=== PATIENT | male | born 1995 | race Caucasian/White ===

== ENCOUNTER 2022-01-12 13:39 | Emergency (ER) | payer OTHER, SELFPAY ==
--- NOTE | 2022-01-12 13:54 | ED_ITS ---
HPI - Psych General Chief Complaint: Psychiatric Symptoms Stated Complaint: crisis Time Seen by Provider: 01/12/22 13:49 Source: patient Mode of arrival: EMS Limitations: no limitations History of Present Illness MD complaint: suicidal ideation and feels depressed Onset (ago): week(s) History of same: Yes Relieving factors: none Exacerbating factors: drug use Context: significant life stressor Associated psychiatric symptoms: depression and suicidal ideation Associated symptoms: denies other symptoms Treatments prior to arrival: none If self harm: admits thoughts of self harm Related Data Home Medications Medication Instructions Recorded Confirmed dicyclomine 10 mg capsule 1 cap PO QID PRN 01/12/22 escitalopram oxalate 10 mg tablet 1 tab PO DAILY 01/12/22 escitalopram oxalate 20 mg tablet 1 tab PO DAILY 01/12/22 hydroxyzine HCl 25 mg tablet 1 tab PO TID PRN 01/12/22 omeprazole 40 mg capsule,delayed 1 cap PO DAILY 01/12/22 release Allergies Allergy/AdvReac Type Severity Reaction Status Date / Time shellfish derived Allergy Unknown Verified 01/12/22 13:56 lactose AdvReac Intermediate Abdominal Verified 01/12/22 13:50 Pain Review of Systems Review of Systems: Constitutional : No Fever, No Chills ENT/Mouth : No Ear Pain, No Nasal Congestion, No sore throat Eyes: No Eye Pain, No Swelling, No Redness Cardiovascular : No Chest Pain, No SOB Respiratory : No Cough, No Sputum, No Dyspnea Gastrointestinal : No Nausea, No Vomiting, No Diarrhea, No Hematochezia, No Melena Genitourinary : No Dysuria, No Urinary Frequency, No Hematuria Musculoskeletal : No Myalgias Skin : No Skin Lesions, No rash Neuro : No Weakness, No Numbness, No Paresthesias, No Dizziness, No Headache Psych : positive Anxiety, positive Depression, positive SI no HI Heme/Lymph: No Lymphadenopathy Endocrine : No Polyuria, No Polydipsia All other systems reviewed and are negative [facility] Past Medical History Attestation statement: The following information was validated with the patient. Medical History GERD (gastroesophageal reflux disease) Lactose intolerance Opiate use Social History Social History (Updated 01/12/22 @ 13:57 by Chacha Whitfield DO) Alcohol intake: never Patient Tobacco Use Status: Never used Tobacco Use of substances other than those prescribed or required for medical reasons: Yes Substance Use Type: Marijuana Advance Directives: No Advance Directives Information Provided: No Physical Exam Vital Signs: Vital Signs: Last Vital Signs Temp 98.3 F 01/12/22 13:57 Pulse 108 H 01/12/22 13:57 Resp 18 01/12/22 13:57 BP 135/96 H 01/12/22 13:57 Pulse Ox 98 01/12/22 13:57 BMI result Body Mass Index 20.3 Appearance: Alert. Oriented X3. No acute distress. Eyes: Pupils equal, round and reactive to light. ENT: Pharynx normal. Neck: Normal inspection. Neck supple. CVS: Normal heart rate and rhythm. Pulses normal. Respiratory: No respiratory distress. Breath sounds normal. Abdomen: Soft and nontender. Skin: Skin warm and dry. Normal skin color. Normal skin turgor. Extremities: No lower extremity edema. No calf ttp Neuro: Oriented X 3. No motor deficit. No sensory deficit. Cn2-12 intact Course Course Course Narrative: mild dehydration will encourage PO fluids Physician observation started at 316pm. Patient placed in physician observation because the patient needed more time for [facility] to assess the need for psych admission. At the time observation was started the patient's vitals were stable, patient is alert and oriented but slightly anxious, Neuro: nonfocal, CV RRR, Lungs clear MDM - Psych MDM Narrative Medical decision making narrative: 26 yo female with hx of GERD< chronic stomach issues, lactose intolerance, anxiety/depression not in treatment, using oxycodone daily last used 3 days ago interested in therapy for it comes in with c/o depression and SI - at this time labs, [facility]N consult ordered. Lab Data Result diagrams: 01/12/22 14:39 01/12/22 14:39 Labs: Lab Results 01/12/22 01/12/22 01/12/22 Range/Units 14:39 14:39 14:39 WBC 10.4 (4.8-10.8) X10*3/uL RBC 5.67 (4.60-5.80) X10*6/uL Hgb 16.1 (14.0-18.0) g/dl Hct 47.2 (42.0-52.0) % MCV 83.2 (80.0-98.0) fL MCH 28.4 (27.0-33.0) pg MCHC 34.1 (31.0-36.0) g/dl RDW 13.2 (11.0-16.0) % Plt Count 312 (160-400) X10*3/uL MPV 9.6 (9.4-12.4) fL Immature Gran % (Auto) 0.3 (0.0-0.4) % Neut % (Auto) 75.1 H (45-73) % Lymph % (Auto) 15.6 L (20-40) % Franklin % (Auto) 8.1 (2-11) % Eos % (Auto) 0.7 (0-4) % Baso % (Auto) 0.2 (0-2) % Lymph # (Auto) 1.6 (1.2-4.9) X10*3/uL Franklin # (Auto) 0.8 (0.1-1.2) X10*3/uL Eos # (Auto) 0.1 (0.0-0.4) X10*3/uL Baso # (Auto) 0.0 (0.0-0.2) X10*3/uL Abs Immat Gran (auto) 0.03 (0.00-0.03) X10*3/uL Absolute Neuts (auto) 7.8 (2.0-8.3) x10*3/uL Absolute Nucleated RBC 0.000 (0.0-0.012) X10*3/uL Nucleated RBC % (auto) 0.0 (0.0-0.2) /100WBC Sodium 137 (135-145) mmol/L Potassium 4.9 (3.3-5.1) mmol/L Chloride 101 (96-108) mmol/L Carbon Dioxide 24 (22-29) mmol/L Anion Gap 17 (12-20) BUN 17 H (9-16) mg/dL Creatinine 1.15 (0.5-1.4) mg/dL Estim Creat Clear Calc 93.6 Estimated GFR > 60 Random Glucose 82 (60-115) mg/dL Calcium 10.3 H (8.4-10.2) mg/dL Magnesium 2.0 (1.6-2.6) mg/dL Total Bilirubin 2.4 H (0.0-1.0) mg/dL Direct Bilirubin 0.8 H (0.0-0.5) mg/dL AST 41 H (5-37) U/L ALT 22 (0-40) U/L Alkaline Phosphatase 65 (39-117) U/L Total Protein 8.1 H (6.5-8.0) g/dL Albumin 5.0 (3.5-5.0) g/dL COVID-19 (TOÑA) Negative (Negative) COVID-19 Clin Com See Note Discharge Plan Discharge Clinical Impression: Depression, Opiate abuse, continuous, Acute dehydration Patient Disposition: Still a Patient Prescriptions: No Action omeprazole 40 mg capsule,delayed release(DR/EC) 1 cap PO DAILY 0RF hydroxyzine HCl 25 mg tablet 1 tab PO TID PRN (Reason: anxiety) 0RF dicyclomine 10 mg capsule 1 cap PO QID PRN (Reason: pain) 0RF escitalopram oxalate 10 mg tablet 1 tab PO DAILY 0RF escitalopram oxalate 20 mg tablet 1 tab PO DAILY 0RF
[2022-01-12 13:57] VITALS: BP 120/74; BP 135/96; PULSE 108; PULSE 98; RESP 18; TEMP 36.8; O2SAT 98; O2SAT 99; BMI 20.3
[2022-01-12] MEDS: Dicyclomine HCl 10 MG CAPSULE PO (14:30)
[2022-01-12] MEDS: Ondansetron ODT 4 MG TAB.RAPDIS TRANSLINGU (14:30)
[2022-01-12] MEDS: Omeprazole 20 MG CAPSULE.DR PO (14:30)
[2022-01-12 14:46] LABS: MANUAL DIFF FLAG NO
[2022-01-12 14:48] LABS: Basophils Percent Auto 0.2 % (0-2); Eosinophils Absolute Auto 0.1 X10*3/uL (0.0-0.4); Eosinophils Percent Auto 0.7 % (0-4); Hematocrit 47.2 % (42.0-52.0); Hemoglobin 16.1 g/dl (14.0-18.0); Imm Gran Abs Auto 0.03 X10*3/uL (0.00-0.03); Imm Gran Pct Auto 0.3 % (0.0-0.4); Lymphocytes Absolute Auto 1.6 X10*3/uL (1.2-4.9); Lymphocytes Percent Auto 15.6 % (20-40); Mean Corpuscular HGB Conc 34.1 g/dl (31.0-36.0); Mean Corpuscular Hemoglobin 28.4 pg (27.0-33.0); Mean Corpuscular Volume 83.2 fL (80.0-98.0); Mean Platelet Volume 9.6 fL (9.4-12.4); Monocytes Absolute Auto 0.8 X10*3/uL (0.1-1.2); Monocytes Percent Auto 8.1 % (2-11); Neutrophils Absolute Auto 7.8 x10*3/uL (2.0-8.3); Neutrophils Percent Auto 75.1 % (45-73); Platelet Count 312 X10*3/uL (160-400); Red Blood Count 5.67 X10*6/uL (4.60-5.80); Red Cell Distribution Width 13.2 % (11.0-16.0); White Blood Count 10.4 X10*3/uL (4.8-10.8)
[2022-01-12 15:05] LABS: Alanine Aminotransferase 22 U/L (0-40); Alkaline Phosphatase 65 U/L (39-117); Anion Gap 17 (12-20); Aspartate Amino Transferase 41 U/L (5-37); Bilirubin Direct 0.8 mg/dL (0.0-0.5); Bilirubin Total 2.4 mg/dL (0.0-1.0); Blood Urea Nitrogen 17 mg/dL (9-16); Calcium 10.3 mg/dL (8.4-10.2); Carbon Dioxide 24 mmol/L (22-29); Chloride 101 mmol/L (96-108); Creatinine Clr Calc Pharmacy 93.6; Estimated Glomerular Filt Rate > 60; Glucose Random 82 mg/dL (60-115); Potassium 4.9 mmol/L (3.3-5.1); Sodium 137 mmol/L (135-145); Total Protein 8.1 g/dL (6.5-8.0)
[2022-01-12 15:07] LABS: COVID-19 Test Negative (Negative); IDNOW Serial# 55D5AD1C
[2022-01-12] MEDS: hydrOXYzine HCL 25 MG TABLET PO (16:19)
--- NOTE | 2022-01-12 16:20 | PHA.MEDREC ---
Pharmacy Consult ? Medication Reconciliation Pharmacy has completed the medication reconciliation. Patient states that the last time he took any medication was about 3 to 4 days ago. He states he takes 40 mg of escitalopram daily but the pharmacy has been messing up filling 10 mg and 20 mg scripts. The patient states he has been buying percocets off the street as well and the last one he took was a few days ago. The patient also states that sometimes if his stomach is bothering him he will take an extra omeprazole.
[2022-01-12 18:33] LABS: Amphetamine Screen Urine POSITIVE (Not Detect); Barbiturates, Urine Not Detected (Not Detect); Benzodiazepines Screen Urine POSITIVE (Not Detect); Cannabinoid Screen Urine POSITIVE (Not Detect); Cocaine Screen Urine Not Detected (Not Detect); Fentanyl, urine POSITIVE (Not Detect); Opiate Screen Urine Not Detected (Not Detect); Phencyclidine Screen Urine Not Detected (Not Detect)
--- NOTE | 2022-01-13 06:21 | PC.NURSE ---
Patient slept through the night, no distress observed/reported, behavior non concerning, med rec completed/pending provider's approval, patient is awaiting N assessment, no ETA update from [facility], V[facility], will continue to monitor.
[2022-01-13 06:59] VITALS: BP 116/64; PULSE 98; RESP 20; TEMP 36.6; O2SAT 98
[2022-01-13] MEDS: hydrOXYzine HCL 25 MG TABLET PO (10:59)
[2022-01-13] MEDS: Escitalopram Oxalate 20 MG TABLET 40 MG PO (10:59)
[2022-01-13] MEDS: Omeprazole 40 MG CAPSULE.DR PO (11:00)
--- NOTE | 2022-01-13 12:06 | MHC.RECOVSUP ---
Recovery Support note: Domingo is a 26 year old [place]de[place] speaking male who presented to [facility] due to SI. Patient was evaluated by CARE Team and cleared for discharge. This lyric writer met with patient prior to discharge to provide recovery support. Patient reports he has been using percocet but trying to come off of them. Patient reports this is his third time getting on them and that previously he has gotten off them without assistance of detox or medications. Discussed medications for opioid use disorder with patient. Patient reports interest in getting on Suboxone or methadone. Education provided regarding these medications. This lyric writer offered to get patient into clinic today however he declined, stating he has to get home. Discussed recovery centers and recovery coaching with patient. Patient agreeable to being referred to a dramatic coach. Patient is unsure if he will find his phone. This lyric writer provided patient with contact informatio for dramatic coach and recovery support RN. Recovery Team will follow up with patient later on in the week to help patient connect with [facility]. Discussed case with CARE Team.
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
== END 2022-01-13 12:33 | disposition home or self-care (01) ==
PROVIDERS: Emergency Provider Emergency Medicine
DX: F32.A Depression, unspecified (principal); F11.10 Opioid abuse, uncomplicated; E86.0 Dehydration; Z20.822 Contact with and (suspected) exposure to COVID-19
CPT/HCPCS: 80048; 80076; 80307; 83735; 85025; 87635; 99284; 99285